=== PATIENT | female | born 1990 | race Caucasian/White ===

== ENCOUNTER 2017-04-18 16:10 | Emergency (ER) | payer OTHER ==
[~2017-04-18] VITALS: Ht 157.5 cm; Wt 52.2 kg
[~2017-04-18 16:10] MED LIST: AMBIEN10 MG PO; ATIVAN2 M1 PO; NORCO 5/325 MG1 TAB PO
[2017-04-18 16:19] VITALS: BP 104/72
[2017-04-18] MEDS ORDERED: ONDANSETRON 4 MG ODT PO ONE (16:25)
--- NOTE | 2017-04-18 16:25 | NUR ---
Patient to bed 07.
--- NOTE | 2017-04-18 16:26 | NUR ---
26/F BIB SELF C/O COUGH, HEADACHE, R BACK PAIN, N/V/D X 3DAYS. SKIN IS PINK/WARM/DRY; AAOX4 WITH EVEN AND STEADY GAIT; LUNGS CLEAR BL; HR EVEN AND REGULAR; PT DENIES ANY FEVER, CP, SOB AT THIS TIME; PATIENT STATES PAIN OF 4/10 AT THIS TIME; VSS; PATIENT POSITIONED FOR COMFORT; HOB ELEVATED; BEDRAILS UP X2; BED DOWN. ER MD MADE AWARE OF PT STATUS.
--- NOTE | 2017-04-18 16:30 | NUR ---
Patient appears to be resting comfortably in bed. Vital Signs within normal limits. Respirations even and unlabored.WILL CONTINUE TO MONITOR
[2017-04-18] MEDS ORDERED: METOCLOPRAMIDE 10 MG TAB PO ONE (16:40)
[2017-04-18] MEDS ORDERED: NACL 0.9% 1,000 ML IV ONE (17:15)
[2017-04-18] MEDS ORDERED: diphenhydrAMINE 50 MG/ML VIAL IVP ONE (17:20)
--- NOTE | 2017-04-18 17:20 | NUR ---
LAB AT BEDSIDE
[2017-04-18 18:42] VITALS: BP 110/73
--- NOTE | 2017-04-18 18:42 | NUR ---
Patient discharged with v/s stable. Written and verbal after care instructions given and explained. Patient alert, oriented and verbalized understanding of instructions. Ambulatory with steady gait. All questions addressed prior to discharge. ID band removed. Patient advised to follow up with PMD. Rx of KEFLEX, LOMOTIL, BENADRYL & REGLAN given. Patient educated on indication of medication including possible reaction and side effects. Opportunity to ask questions provided and answered.
== END 2017-04-18 18:42 | disposition home or self-care (01) ==
LOC: MED 16:10
DX: K52.9 Noninfective gastroenteritis and colitis, unspecified (principal); N39.0 Urinary tract infection, site not specified
CPT/HCPCS: 36415; 80053; 81001; 81025; 83690; 84703; 85025; 87086; 96361; 96374; 99284; J1200; J7030; J8597

== ENCOUNTER 2018-02-18 10:21 | Emergency (ER) | payer OTHER ==
[~2018-02-18] VITALS: Ht 157.5 cm; Wt 52.2 kg
[~2018-02-18 10:21] MED LIST changes: +ACET-8386 PO; -AMBIEN10 MG PO; -ATIVAN2 M1 PO; +LORA-478 PO; -NORCO 5/325 MG1 TAB PO; +ZOLP10TA1 PO
[2018-02-18 10:31] VITALS: BP 102/74
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
--- NOTE | 2018-02-18 10:50 | NUR ---
Patient being evaluated by physician at bedside.
[2018-02-18] MEDS ORDERED: traMADol 50 MG TAB PO ONE (11:05)
[2018-02-18] MEDS ORDERED: KETOROLAC 60 MG/2 ML VIAL IM ONE (11:05)
[2018-02-18 11:20] VITALS: BP 101/72
--- NOTE | 2018-02-18 11:22 | NUR ---
Patient discharged with v/s stable. Written and verbal after care instructions given and explained. Patient verbalized understanding. Ambulatory with steady gait. All questions addressed prior to discharge. Advised to follow up with PMD.
[2018-02-20 06:16] LABS: CHLAMYDIA TRACHOMATIS AMP DNA Negative (Negative)
== END 2018-02-18 11:22 | disposition home or self-care (01) ==
LOC: MED 10:21
DX: S00.93XA Contusion of unspecified part of head, initial encounter (principal); S50.01XA Contusion of right elbow, initial encounter; R09.89 Other specified symptoms and signs involving the circulatory and respiratory systems; Z79.899 Other long term (current) drug therapy; Y04.8XXA Assault by other bodily force, initial encounter; Y93.89 Activity, other specified; Y92.89 Other specified places as the place of occurrence of the external cause; Y99.8 Other external cause status
CPT/HCPCS: 36415; 81002; 81025; 87491; 99282; 99283

== ENCOUNTER 2018-11-20 19:04 | Emergency (ER) | payer OTHER ==
[~2018-11-20] VITALS: Ht 157.5 cm; Wt 56.2 kg
[2018-11-20 19:22] VITALS: BP 100/67
--- NOTE | 2018-11-20 19:24 | NUR ---
PT AMBULATORY TO BR THEN TO ER LOBBY W/ STEADY GAIT IN STABLE CONDITION.
--- NOTE | 2018-11-20 19:25 | NUR ---
ASSUMED CARE OF PT AT THIS TIME. C/O DYSURIA/PAINFUL URINATION X 2 DAYS. AAOX4 WITH EVEN AND STEADY GAIT; PATIENT STATES PAIN OF 0/10; VSS; PATIENT POSITIONED FOR COMFORT; HOB ELEVATED; BEDRAILS UP X2; BED DOWN. ER MD MADE AWARE OF PT STATUS. WILL CONTINUE TO MONITOR.
[2018-11-20 20:12] LABS: APPEARANCE,URINE CLEAR (CLEAR); BILIRUBIN,URINE NEGATIVE (NEGATIVE); BLOOD, URINE NEGATIVE (NEGATIVE); COLOR,URINE YELLOW (YELLOW); LEUKOCYTE ESTERASE ,URINE NEGATIVE (NEGATIVE); NITRITE, URINE NEGATIVE (NEGATIVE); UGLUCOSE NEGATIVE (NEGATIVE)
--- NOTE | 2018-11-20 20:31 | NUR ---
Patient discharged with v/s stable. Written and verbal after care instructions given and explained. Patient alert, oriented and verbalized understanding of instructions. Ambulatory with steady gait. All questions addressed prior to discharge. ID band removed. Patient advised to follow up with PMD. Rx of Pyridium, and Septra given. Patient educated on indication of medication including possible reaction and side effects. Opportunity to ask questions provided and answered.
[2018-11-20 20:32] VITALS: BP 116/74
== END 2018-11-20 20:31 | disposition home or self-care (01) ==
LOC: MED 19:04
DX: R30.0 Dysuria (principal); Z79.899 Other long term (current) drug therapy
CPT/HCPCS: 81003; 81025; 87086; 99283

== ENCOUNTER 2018-11-22 16:58 | Emergency (ER) | payer OTHER ==
[~2018-11-22] VITALS: Ht 160 cm; Wt 56.9 kg
[2018-11-22 17:02] VITALS: BP 137/92
--- NOTE | 2018-11-22 17:15 | NUR ---
Pt present to Ed for recheck; Pt was seen here in Er couple of days ago and was dx with UTI.Pt was prescribed w/ anti biotic but did not finish it because she suddenly have itchiness and burning sensation on her vagina. Pt states she has rashes and itchiness and burning sensation on her body. Denies sob at this time. Pt still have dysuria. denies N/V. Aao x 4;Saftey measures instituted; ER Md will be notified.
[2018-11-22 17:37] LABS: APPEARANCE,URINE CLEAR (CLEAR); BILIRUBIN,URINE NEGATIVE (NEGATIVE); BLOOD, URINE NEGATIVE (NEGATIVE); COLOR,URINE YELLOW (YELLOW); LEUKOCYTE ESTERASE ,URINE TRACE (NEGATIVE); NITRITE, URINE NEGATIVE (NEGATIVE); UGLUCOSE NEGATIVE (NEGATIVE)
[2018-11-22 17:40] LABS: RBC,URINE 3-10 (FEW) /HPF (0-5); WBC,URINE 0-5 (RARE) /HPF (0-5)
[2018-11-22] MEDS ORDERED: FLUCONAZOLE 100 MG TAB PO ONE (17:40)
[2018-11-22] MEDS ORDERED: hydrOXYzine HCL 25 MG TAB PO ONE (17:40)
[2018-11-22] MEDS ORDERED: LEVOFLOXACIN 500 MG TAB PO ONE (17:40)
[2018-11-22 17:51] LABS: BARBITURATE, URINE NEG. ng/ml (NEG <=200); BENZODIAZEPINE, URINE NEG. ng/mL (NEG <=200); CANNABINOID, URINE NEG. ng/mL (NEG <=50); COCAINE, URINE POS. ng/mL (NEG <=300); OPIATE, URINE NEG. ng/mL (NEG <=2000); PHENCYCLIDINE SCREEN,URINE NEG. ng/mL (NEG <=25)
--- NOTE | 2018-11-22 17:56 | NUR ---
diflucan not loaded in the pyxis; Pharmacy is closed. Called House sup; will bring the medicine to ER.
--- NOTE | 2018-11-22 17:56 | NUR ---
Note hai in ED - 11/22/18 at 1812 by KIMBERLI difluv=can not loaded in the pyxis; Pharmacy is closed. Called House sup; will bring the medicine to ER.
[2018-11-22] MEDS ORDERED: FLUCONAZOLE 100 MG TAB ONE (18:05)
[2018-11-22 18:11] VITALS: BP 115/78
--- NOTE | 2018-11-22 18:11 | NUR ---
Patient discharged with v/s stable. Written and verbal after care instructions given and explained. Patient alert, oriented and verbalized understanding of instructions. Ambulatory with steady gait. All questions addressed prior to discharge. ID band removed. Patient advised to follow up with PMD. Rx of Atarax and Monistat given. Patient educated on indication of medication including possible reaction and side effects. Opportunity to ask questions provided and answered.
== END 2018-11-22 18:11 | disposition home or self-care (01) ==
LOC: MED 16:58
DX: N30.90 Cystitis, unspecified without hematuria (principal); B37.3 Candidiasis of vulva and vagina; F41.9 Anxiety disorder, unspecified; M32.9 Systemic lupus erythematosus, unspecified; Z79.899 Other long term (current) drug therapy
CPT/HCPCS: 80305; 81001; 81025; 99284

== ENCOUNTER 2019-10-05 21:44 | Emergency (ER) | payer OTHER ==
[~2019-10-05] VITALS: Ht 157.5 cm; Wt 54.4 kg
[2019-10-05 21:55] VITALS: BP 117/66
--- NOTE | 2019-10-05 21:57 | NUR ---
TO LOBBY A/W BED AMBULATORY
--- NOTE | 2019-10-05 22:46 | NUR ---
PT AMBULATED TO ER BED 07
--- NOTE | 2019-10-05 22:50 | NUR ---
HEMATURIA STARTED TODAY WITH RIGHT FLANK PAIN. H/A, DIZZINESS, NAUSEA, DIARRHEA BODY ACHE SORETHROAT, DIFF TO SWALLOW, FOR A WEEK. LUNGS CLEAR. DENIES PAIN UPON URINATION. PROVIDED US WITH URINE SAMPLE. FAMILY AT BEDSIDE. BED IN LOW LOCKED POSTION.
[2019-10-06] LABS: APPEARANCE,URINE CLEAR (CLEAR); BILIRUBIN,URINE NEGATIVE (NEGATIVE); BLOOD, URINE 3+ (NEGATIVE); COLOR,URINE YELLOW (YELLOW); LEUKOCYTE ESTERASE ,URINE NEGATIVE (NEGATIVE); NITRITE, URINE NEGATIVE (NEGATIVE); UGLUCOSE NEGATIVE (NEGATIVE)
[2019-10-06 00:12] LABS: WBC,URINE 0-5 /HPF (0-5)
[2019-10-06] MEDS ORDERED: KETOROLAC 30 MG/ML VIAL IM ONE (00:25)
[2019-10-06] MEDS ORDERED: ONDANSETRON 4 MG ODT PO ONE (00:25)
--- NOTE | 2019-10-06 00:52 | NUR ---
PT RETURNED FROM CT VIA W/C
--- NOTE | 2019-10-06 01:32 | NUR ---
PATIENT INFORMED THAT WE ARE JUST AWAITING THE RESULTS FROM HER CT. SITTING UP IN BED. NO NEW CONCERNS AT THIS TIME.
[2019-10-06 02:11] VITALS: BP 110/60
== END 2019-10-06 02:11 | disposition home or self-care (01) ==
LOC: MED 21:44
DX: R31.9 Hematuria, unspecified (principal); E07.9 Disorder of thyroid, unspecified; Z79.899 Other long term (current) drug therapy
CPT/HCPCS: 74176; 81001; 81025; 96372; 99284; J1885; Q0162; 81002

== ENCOUNTER 2019-12-30 18:42 | Emergency (ER) | payer OTHER ==
[~2019-12-30] VITALS: Ht 160 cm; Wt 55.8 kg
[2019-12-30 18:47] VITALS: BP 142/89
--- NOTE | 2019-12-30 18:53 | NUR ---
PT AMBULATED TO LOBBY WITH STEADY GAIT
--- NOTE | 2019-12-30 19:33 | NUR ---
PT STATES "I THINK I TOOK TOO MUCH COCAINE". STATES SHE HAS BEEN TAKING IT SINCE LAST NIGHT VIA NOSE, GUMS, AND SWALLOWING. AAO X4, GCS 15, AMBULATTORY WITH STEADY GAIT. ABLE TO SPEAK WITH FULL COMPLETE SENTENCES. RESPIRATIONS EVEN AND UNLABORED, BL LUNG CLEAR. SKIN WARM/PINK/DRY, +PMSC. VS WNL, NO ACUTE DISTRESS AT THIS TIME. WILL CONTINUE TO MONITOR
[2019-12-30] MEDS ORDERED: IBUPROFEN 600 MG TAB PO ONE (20:05)
--- NOTE | 2019-12-30 20:23 | NUR ---
Dr. Hamm examining patient.
--- NOTE | 2019-12-30 20:33 | NUR ---
PT AMBULATED TO BED 2.
[2019-12-30 21:47] VITALS: BP 107/82
--- NOTE | 2019-12-30 21:47 | NUR ---
Patient discharged with v/s stable. She states pain reduced to 2/10 and tollerable. Written and verbal after care instructions given and explained. Patient verbalized understanding. Ambulatory with steady gait. All questions addressed prior to discharge. Advised to follow up with PMD.
== END 2019-12-30 21:47 | disposition home or self-care (01) ==
LOC: MED 18:42
DX: F14.10 Cocaine abuse, uncomplicated (principal); R51 Headache; R07.89 Other chest pain; R20.0 Anesthesia of skin; F17.210 Nicotine dependence, cigarettes, uncomplicated; Z98.890 Other specified postprocedural states; Z79.899 Other long term (current) drug therapy
CPT/HCPCS: 36415; 81025; 93005; 99284; G0480